=== PATIENT | female | born 1995 | race African-American/Black ===

== ENCOUNTER 2019-12-07 17:01 | Emergency (ER) | payer OTHER, SELFPAY ==
[2019-12-07 17:07] VITALS: BP 153/98; PULSE 90; RESP 16; TEMP 36.6; O2SAT 100
[2019-12-07 17:52] LABS: Add Urine Microscopic? YES; Appearance Urine Cloudy (Clear); Bacteria Urine Trace /hpf; Bilirubin Urine Negative (Negative); Blood Urine 3+ (Negative); Color Urine Yellow (Yellow); Glucose Urine UA Negative (Negative); Ketones Urine 1+ mg/dL (Negative); Leukocyte Esterase Ur 3+ LEU/UL (Negative); Mucus Urine Rare /lpf; Nitrate Urine Negative (Negative); Protein Urine 1+ mg/dL (Negative); RBC Urine >75 /hpf (0-2); Specific Grav Ur 1.014 (1.001-1.035); Squamous Epithelial Cell Urine Few /hpf (Few); Urobilinogen Urine Negative mg/dL (<2.0); WBC Urine >75 /hpf
[2019-12-07] MEDS: AZITHROMYCIN 250 MG TABLET 1000 MG PO (18:03)
[2019-12-07] MEDS: cefTRIAXone 250 MG VIAL IM (18:08)
[2019-12-07] MEDS: WATER, STERILE FOR INJECTION 10 ML VIAL XX (18:11)
--- NOTE | 2019-12-07 19:20 | ED.FEMALEGU ---
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 Patient states she is also noted a foul odor. Patient denies any vaginal bleeding or pain. Patient states that her last menstrual. Was on November 19 but it was abnormal as it was excessively short and light. Patient reports having unprotected sex. Patient has history of STDs. Patient reports she does not have a [employer] at this time.. Related Data Allergies Allergy/AdvReac Type Severity Reaction Status Date / Time No Known Allergies Allergy Unverified 05/20/14 20:06 Review of Systems Review of Systems: Narrative: CONSTITUTIONAL: Denies fever, chills, or sweats. EYES: Denies visual changes, redness, or discharge. ENT: Denies rhinorrhea, congestion, sore throat, or otalgia. CARDIOVASCULAR: Denies chest pain, palpitations, or edema. RESPIRATORY: Denies cough or dyspnea. GASTROINTESTINAL: Denies abdominal pain, nausea, vomiting, or diarrhea. GENITOURINARY: Reports vaginal discharge SKIN: Denies rash or itching. MUSCULOSKELETAL: Denies back pain, joint pain, or myalgia. NEUROLOGIC: Denies headache, numbness, dizziness, or weakness. PSYCHIATRIC: Denies anxiety or depression. Exam Narrative: Exam Narrative: GENERAL: Well-appearing, well-nourished, and in no acute distress. HEAD: Normocephalic, atraumatic. EYES: PERRLA and EOMI. ENT: Nares clear, no rhinorrhea or epistaxis. Mucous membranes moist. Oropharynx without tonsillar hypertrophy exudate or other lesions. Bilateral TMs pearly mcbride nonbulging NECK: Supple. No adenopathy or masses. No carotid bruits or JVD CHEST: Clear to auscultation. No respiratory distress. No wheezes rales or rhonchi HEART: Regular rate and rhythm. No murmur heard. Normal peripheral pulses. ABDOMEN: Soft, nontender, nondistended, normal active bowel sounds. : Copious amounts of green vaginal discharge noted with erythematous cervix. No bleeding noted. No cervical motion tenderness. EXTREMITIES: Normal range of motion. No edema. SKIN: Warm, dry, no rash. NEURO: No focal deficits. Alert and oriented x3. PSYCH: Normal mood and affect. Course Vital Signs Vital signs: Vital Signs Temperature 97.8 F 12/07/19 17:07 Pulse Rate 90 12/07/19 17:07 Respiratory Rate 16 12/07/19 17:07 Blood Pressure 153/98 H 12/07/19 17:07 Pulse Oximetry 100 12/07/19 17:07 Temperature 97.8 F 12/07/19 17:07 Pulse Rate 90 12/07/19 17:07 Respiratory Rate 16 12/07/19 17:07 Blood Pressure 153/98 H 12/07/19 17:07 Pulse Oximetry 100 12/07/19 17:07 MDM - Female Genitourinary MDM Narrative Medical decision making narrative: General exam patient is being treated for gonorrhea chlamydia. Patient trichomonas also came back positive with large amounts of bacteria and white blood cells in her urine. Patient test also came back positive. Patient will be put on Macrobid and Flagyl. Patient referred to Dr. Cavanaugh for further evaluation,full STD panel testing, and OB management. Patient verbalized understanding agreement plan denies any other questions or concerns. Patient denied to have any sexual intercourse until full STD panel testing is completed and she is informed she is cured of all STDs. Differential Diagnosis Differential diagnosis: Likely urinary tract infection, bacterial vaginosis, trichomoniasis, cervicitis, vaginitis, cystitis, dysmenorrhea and other (Gonorrhea, chlamydia, ) Lab Data Labs: Lab Results 12/07/19 12/07/19 12/07/19 Range/Units 17:41 17:41 17:41 Urine Color Yellow (Yellow) Urine Appearance Cloudy H (Clear) Urine pH 6.0 (5.0-9.0) Ur Specific [place] 1.014 (1.001-1.035) Urine Protein
== END 2019-12-07 20:00 | disposition home or self-care (01) ==
PROVIDERS: Physician Assistant; Emergency Provider Emergency Medicine
DX: O98.211 Gonorrhea complicating pregnancy, first trimester (principal); A54.02 Gonococcal vulvovaginitis, unspecified; O98.311 Other infections with a predominantly sexual mode of transmission complicating pregnancy, first trimester; A56.02 Chlamydial vulvovaginitis; O23.40 Unspecified infection of urinary tract in pregnancy, unspecified trimester; Z3A.00 Weeks of gestation of pregnancy not specified
CPT/HCPCS: 81001; 81025; 87070; 87086; 87088; 87491; 87591; 87808; 96372; 99284; A9270; J0696

== ENCOUNTER 2025-06-21 13:53 | Emergency (ER) | payer OTHER, SELFPAY ==
--- NOTE | ~2025-06-21 | XR_ITS ---
Exam: Chest x-ray 2 views CLINICAL HISTORY: Chest pain. Comparisons: None. TECHNIQUE: Frontal and lateral images of the chest were obtained. FINDINGS: Heart is not enlarged. No pneumothorax. No pleural effusion. No free air in the diaphragm. No focal p ulmonary consolidation. IMPRESSION: 1. No acute pulmonary process identified. Reviewed, dictated and finalized at location A.
[2025-06-21 14:02] VITALS: BP 153/67; PULSE 87; RESP 20; TEMP 36.7; O2SAT 100
--- NOTE | 2025-06-21 14:41 | ECG_ITS ---
Test Date: 2025-06-21 14:20:54 Measurements Intervals [place] Rate: 92 P: 72 [place]: 150 QRS: 55 QRSD: 86 T: 42 QT: 338 QTc: 419 Interpretive Statements SINUS RHYTHM POSSIBLE LEFT ATRIAL ENLARGEMENT BORDERLINE ECG No previous ECG available for comparison Electronically Signed On 06-21-2025 15:52:06 CDT by Colten Waters D.O.
[2025-06-21] MEDS: MAG HYDROX/AL HYDROX/SIMETH 30 ML UDC PO (14:49)
--- NOTE | 2025-06-21 14:54 | ED.GENADULT ---
HPI - General Adult General Chief complaint: Chest Pain Stated complaint: chest pain for a week Source: patient Mode of arrival: ambulatory Limitations: no limitations History of Present Illness HPI narrative: Pt presents for evaluation of chest pain. Symptom onset two weeks ago. Pain was initially burning which has persisted. However, she has bouts of stabbing pain that occur frequently and last seconds to minutes. she cannot identify any aggravating factors. She denies cough but had some mild shortness of breath which has since resolved. she denies any abdominal pain, nausea, vomiting, fever or chills. She thought her symptoms were related to heartburn. She took a medication, which sounds to be zantac, without much improvement. She does drink at least three alcohol containing beverages seven days per week. She does not smoke, use marijuana or use any street drugs. Related Data Home Medications ?Medication ?Instructions ?Recorded ?Confirmed ?Last Taken ?Type ferrous sulfate 325 mg (65 mg 325 mg PO DAILY 06/21/25 Unknown History iron) tablet (FeroSul) Allergies Allergy/AdvReac Type Severity Reaction Status Date / Time No Known Allergies Allergy Unverified 06/21/25 14:08 Review of Systems Review of Systems: CONSTITUTIONAL: Denies fever, chills, or sweats. EYES: Denies visual changes, redness, or discharge. ENT: Denies rhinorrhea, congestion, sore throat, or otalgia. CARDIOVASCULAR: Reports sternal chest pain. Denies palpitations, or edema. RESPIRATORY: Denies cough or dyspnea. GASTROINTESTINAL: Denies abdominal pain, nausea, vomiting, or diarrhea. GENITOURINARY: Denies dysuria or hematuria. SKIN: Denies rash or itching. MUSCULOSKELETAL: Denies back pain, joint pain, or myalgia. NEUROLOGIC: Denies headache, numbness, dizziness, or weakness. PSYCHIATRIC: Denies anxiety or depression. Course Course Emergency Course: this is a 29-year-old female who presented for evaluation of burning sensation in her sternum with a history of daily alcohol use. 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 Chest x-ray was normal. EKG with no acute ischemic changes. She was given Mylanta. She was then given Pepcid. Her symptoms improved. Advise she follow a bland diet. Recommend she avoid ETOH. Will dc with protonix. May take pepcid, TUMS or rolaids for breakthrough symptoms. Follow up with primary provider. Go to the emergency department for worsening symptoms. Patient in agreement with plan of care. Level of Care: Express Care Visit Vital Signs Vital signs: Vital Signs Temperature 36.7 C 06/21/25 14:02 Pulse Rate 87 06/21/25 14:02 Respiratory Rate 20 06/21/25 14:02 Blood Pressure 153/67 H 06/21/25 14:02 Pulse Oximetry 100 06/21/25 14:02 Oxygen Delivery Room Air 06/21/25 14:02 Temperature 36.7 C 06/21/25 14:02 Pulse Rate 87 06/21/25 14:02 Respiratory Rate 20 06/21/25 14:02 Blood Pressure 153/67 H 06/21/25 14:02 Pulse Oximetry 100 06/21/25 14:02 Oxygen Delivery Room Air 06/21/25 14:09 Medical Decision Making Vital Signs Vital Signs: Vital Signs Temperature 36.7 C 06/21/25 14:02 Pulse Rate 87 06/21/25 14:02 Respiratory Rate 20 06/21/25 14:02 Blood Pressure 153/67 H 06/21/25 14:02 Pulse Oximetry 100 06/21/25 14:02 Oxygen Delivery Room Air 06/21/25 14:02 Temperature 36.7 C 06/21/25 14:02 Pulse Rate 87 06/21/25 14:02 Respiratory Rate 20 06/21/25 14:02 Blood Pressure 153/67 H 06/21/25 14:02 Pulse Oximetry 100 06/21/25 14:02 Oxygen Delivery Room Air 06/21/25 14:09 Imaging Data Radiologist's impression: Exam: Chest x-ray 2 views CLINICAL HISTORY: Chest pain. Comparisons: None. TECHNIQUE: Frontal and lateral images of the chest were obtained. FINDINGS: Heart is not enlarged. No pneumothorax. No pleural effusion. No free air in the diaphragm. No focal pulmonary consolidation. IMPRESSION: 1. No acute pulmonary process identified. ECG Data EKG #1: ECG completion date: 06/21/25 ECG completion time: 14:20 Interpretation: sinus rhythm, rate 92, left atrial enlargement, otherwise normal EKG Discharge Plan Discharge Clinical Impression: Gastritis Patient Disposition: Home Condition: Stable Instructions: Antibiotic Form, Gastritis (ED) Additional Instructions: PLEASE FOLLOW BLAND DIET AVOID ALCOHOL, THAT CAN WORSEN SYMPTOMS IF YOU HAVE BREAKTHROUGH HEARTBURN, YOU MAY TAKE PEPCID, ROLAIDS OR TUMS Patient Language: Romanian Prescriptions: New pantoprazole 40 mg tablet,delayed release (DR/EC) 40 mg PO QAM Qty: 14 0RF No Action ferrous sulfate [FeroSul] 325 mg (65 mg iron) tablet 325 mg PO DAILY Follow-up/Referrals: Shan Hameed MD [Physician] - Time of Disposition: 15:48
[2025-06-21] MEDS: FAMOTIDINE 20 MG TABLET PO (15:29)
== END 2025-06-21 15:54 | disposition home or self-care (01) ==
PROVIDERS: Emergency Provider Nurse Practitioner
DX: K29.70 Gastritis, unspecified, without bleeding (principal)
CPT/HCPCS: 71046; 93005; 99213; A9270; G0463